=== PATIENT | female | born 1970 | race American Indian/Alaskan Native ===

== ENCOUNTER 2016-03-31 11:29 | Emergency (ER) | payer SELFPAY ==
[2016-03-31 16:01] VITALS: BP 117/93
[2016-03-31] MEDS ORDERED: TYLENOL PO ONE (16:58)
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
--- NOTE | 2016-03-31 18:13 | XRay Report ---
FINAL REPORT EXAM: XR SPINE LUMBOSACRAL 2-3V HISTORY: shooting pain from L butt to left thigh TECHNIQUE: Lumbar spine three views 4 images PRIORS: None. FINDINGS: No gross abnormality is seen in the visualized paraspinal soft tissues. Vertebral body height is preserved. No acute fracture or anterolisthesis is identified. Intervertebral disc height is preserved. IMPRESSION: 1. No acute osseous abnormality is identified.
== END 2016-03-31 18:58 | disposition home or self-care (01) ==
LOC: ED 11:29
DX: M54.42 Lumbago with sciatica, left side (principal); H92.02 Otalgia, left ear; G43.909 Migraine, unspecified, not intractable, without status migrainosus; F17.200 Nicotine dependence, unspecified, uncomplicated
CPT/HCPCS: 72100; 82962

== ENCOUNTER 2016-10-24 17:23 | Emergency (ER) | payer SELFPAY ==
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
[2016-10-24 17:35] VITALS: BP 124/86
[2016-10-24] MEDS ORDERED: XANAX PO ONE (18:16)
[2016-10-24] MEDS ORDERED: ZITHROMAX PO ONE (18:17)
[2016-10-24] MEDS ORDERED: FLAGYL PO ONE (18:18)
[2016-10-24] MEDS ORDERED: PERCOCET 5/325 PO ONE (18:19)
[2016-10-24] MEDS ORDERED: ZOFRAN ODT PO ONE (18:20)
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
[2016-10-24] MEDS ORDERED: MORPHINE IM ONE (18:41)
[2016-10-24 19:56] LABS: Bacteria,Urine 1+ /HPF (Negative); Bilirubin,Urine NEG (Negative); Blood,Urine NEG (Negative); Ketones,Urine 20 mg/dL (Negative); Leukocyte Esterase,Urine SM (Negative); Mucus,Urine 1+ /HPF; Nitrite,Urine NEG (Negative); Protein,Urine <15 mg/dL mg/dL (Negative); Urobilinogen,Urine < 2.0 mg/dL (<2.0)
== END 2016-10-24 20:54 | disposition other institution (70) ==
LOC: ED 17:23
DX: T74.21XA Adult sexual abuse, confirmed, initial encounter (principal); F41.9 Anxiety disorder, unspecified; G43.909 Migraine, unspecified, not intractable, without status migrainosus; F17.200 Nicotine dependence, unspecified, uncomplicated; Y08.89XA Assault by other specified means, initial encounter; Y93.9 Activity, unspecified; Y92.9 Unspecified place or not applicable; Y99.9 Unspecified external cause status
CPT/HCPCS: 81001; 87591; 96372; 99283; J2270; Q0162